=== PATIENT | female | born 1995 | race Caucasian/White ===

== ENCOUNTER 2017-09-14 09:46 | Emergency (ER) | payer OTHER ==
[2017-09-14 09:52] VITALS: BP 108/71; PULSE 95; RESP 16; TEMP 98.6; O2SAT 97
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
== END 2017-09-14 13:10 | disposition home or self-care (01) ==
LOC: EEVIPCON 09:46 → SANE 13:10
DX: Z04.41 Encounter for examination and observation following alleged adult rape (principal)